=== PATIENT | male | born 1955 | race Asian ===

== ENCOUNTER → 2021-05-10 | Outpatient (CLI) | payer OTHER | END | disposition home or self-care (01) | LOC: RADMN 10:20 | PROVIDERS: ATTEND Internal Medicine | DX: M51.37 Other intervertebral disc degeneration, lumbosacral region (principal); M47.27 Other spondylosis with radiculopathy, lumbosacral region; M48.07 Spinal stenosis, lumbosacral region | CPT/HCPCS: 72148 ==